=== PATIENT | female | born 1965 | race African-American/Black ===

== ENCOUNTER 2025-09-07 22:23 | Inpatient (IN) | payer MEDICAID ==
[~2025-09-07] VITALS: Ht 162.5 cm; Wt 110.8 kg
[2025-09-07] MEDS ORDERED: GABAPENTIN400 MG PO (22:33)
[2025-09-07] MEDS ORDERED: OXYCODONE5 M1 PO (22:35)
[2025-09-07] MEDS ORDERED: COZAAR25 M1 PO (22:36)
[2025-09-07] MEDS ORDERED: GABAPENTIN800 MG PO (22:36)
[2025-09-07] MEDS ORDERED: NORVASC5 MG PO (22:37)
[2025-09-07] MEDS ORDERED: TRAZODONE50 MG PO (22:38)
[2025-09-07] MEDS ORDERED: DULOXETINE HCL60 MG PO ×2 (22:39→22:48)
[2025-09-07] MEDS ORDERED: NEURONTIN800 MG PO (22:42)
[2025-09-07] MEDS ORDERED: Water, Sterile 10 ML VIAL IM PRN (22:55)
[2025-09-07] MEDS ORDERED: LORazepam 1 MG TAB PO PRN (22:55)
[2025-09-07] MEDS ORDERED: hydrOXYzine hydrochloride 50 MG/ML VIAL IM PRN (22:55)
[2025-09-07] MEDS ORDERED: ACETAMINOPHEN 325 MG TAB PO PRN (22:55)
[2025-09-07] MEDS ORDERED: MG-AL HYDROXIDE/SIMETICONE 30 ML UDC PO PRN (22:55)
[2025-09-07] MEDS ORDERED: Menthol/Zinc Oxide 4 GM THIN T PRN (23:05)
[2025-09-08 00:02] VITALS: BP 170/110
[2025-09-08] MEDS ORDERED: OXYCODONE HCL (IR) 5 MG TAB PO PRN (01:15)
[2025-09-08] MEDS ORDERED: GABAPENTIN 800 MG TAB PO SCH ×2 (02:25→09:00)
[2025-09-08 06:28] LABS: BASO # 0.0 10*3/uL (0.0-0.1); BASO % 0.5 % (0.0-1.0); EOS # 0.2 10*3/uL (0.0-0.4); EOS % 2.8 % (1.0-4.0); MEAN CELL VOLUME 96.0 fl (81.0-99.0); MEAN CORPUSCULAR HGB 30.0 pg (27.0-31.0); MEAN PLATELET VOLUME 10.0 fl (9.6-12.3); MONO # 0.5 10*3/uL (0.1-1.0); MONO % 8.0 % (3.0-9.0); NEUT # 3.0 10*3/uL (2.3-7.9); NEUT % 52.7 % (47.0-73.0); NUCLEATED RED BLOOD CELL 0.0 % (0.0-0.0); NUCLEATED RED BLOOD CELL 0.0 10*3/uL (0.0-0.0); PLATELET COUNT AUTOMATED 182 10*3/uL (130-400); RED CELL DISTRI WIDTH 14.0 % (0-14.5); VITAMIN D, 25-HYDROXY 41.7 ng/mL (30-100)
[2025-09-08 06:37] LABS: BUN 11 mg/dl (9-23); LDL CHOLESTEROL 64 mg/dL (9-159); SGPT/ALT 15 U/L (5-49)
[2025-09-08 06:40] LABS: VALPROIC ACID (DEPAKENE) < 3.0 ug/ml (50-100)
[2025-09-08] MEDS ORDERED: POTASSIUM CHLORIDE 20 MEQ TAB PO ONE (08:25)
[2025-09-08] MEDS ORDERED: CYANOCOBALAMIN 500 MCG TAB PO SCH (09:00)
[2025-09-08] MEDS ORDERED: GABAPENTIN 400 MG CAP PO SCH (09:00)
[2025-09-08] MEDS ORDERED: CYANOCOBALAMIN 1,000 MCG/ML VIAL IM SCH (10:00)
[2025-09-08 20:00] VITALS: BP 134/73
[2025-09-08] MEDS ORDERED: Amitriptyline Hydrochloride 25 MG TAB PO SCH (21:00)
[2025-09-08] MEDS ORDERED: GABAPENTIN 300 MG CAP PO SCH (21:00)
[2025-09-09 07:13] LABS: BUN 12 mg/dl (9-23)
[2025-09-09 11:28] VITALS: BP 141/82
[2025-09-09 20:00] VITALS: BP 158/99
[2025-09-09] MEDS ORDERED: IBUPROFEN 200 MG TAB PO PRN (20:50)
[2025-09-09] MEDS ORDERED: Amitriptyline Hydrochloride 25 MG TAB PO SCH (21:00)
[2025-09-10 08:00] VITALS: BP 154/100
[2025-09-10 20:00] VITALS: BP 154/62
[2025-09-11 08:19] VITALS: BP 136/74
[2025-09-11] MEDS ORDERED: OXYCODONE HCL (IR) 5 MG TAB PO PRN (13:47)
[2025-09-11 20:00] VITALS: BP 121/64
[2025-09-12] MEDS ORDERED: AMITRIPTYLINE25 MG PO (08:42)
[2025-09-12] MEDS ORDERED: B121000 MCG/1 IM (08:42)
[2025-09-12 09:25] VITALS: BP 136/73
[2025-09-12] MEDS ORDERED: OXYCODONE HCL5 MG PO (09:47)
[2025-09-12] MEDS ORDERED: NEURONTIN300 MG PO (09:48)
[2025-09-12 15:39] LABS: BILIRUBIN Negative (Negative); BLOOD Negative (Negative); CLARITY Clear (Clear); COLOR Yellow (Yellow); KETONE Negative (Negative); LEUKO ESTERASE Negative (Negative); NITRITE Negative (Negative); PH 5.5 (4.5-8.0); SPECIFIC GRAVITY 1.020 (1.001-1.030); UROBILINOGEN 0.2 E.U./dl (0.0-1.0)
[2025-09-12 15:58] LABS: BACTERIA 2+; CALCIUM OXALATE CRYSTALS 1+; EPITHELIAL CELLS 0-2
[2025-09-12 20:00] VITALS: BP 152/89
[2025-09-13 07:53] VITALS: BP 126/79
[2025-09-13] MEDS ORDERED: Amitriptyline Hydrochloride 25 MG TAB PO ONE (11:20)
[2025-09-14] MEDS ORDERED: Amitriptyline Hydrochloride 25 MG TAB PO SCH (09:00)
== END 2025-09-13 13:31 | disposition home or self-care (01) | DRG 751 ==
LOC: 3N 22:23
PROVIDERS: ADMIT Psychiatry & Neurology Psychiatry; ATTEND Psychiatry & Neurology Psychiatry
PROC: GZHZZZZ Group Psychotherapy (ICD-10-PCS; principal; 2025-09-08)
PROC: GZ56ZZZ Individual Psychotherapy, Supportive (ICD-10-PCS; 2025-09-08)
DX: F33.2 Major depressive disorder, recurrent severe without psychotic features (principal); I10 Essential (primary) hypertension; E78.5 Hyperlipidemia, unspecified; G62.9 Polyneuropathy, unspecified; M54.9 Dorsalgia, unspecified; E87.6 Hypokalemia; R73.9 Hyperglycemia, unspecified; T39.1X2A Poisoning by 4-Aminophenol derivatives, intentional self-harm, initial encounter; E05.90 Thyrotoxicosis, unspecified without thyrotoxic crisis or storm; M25.562 Pain in left knee; M25.561 Pain in right knee; E66.3 Overweight; F34.1 Dysthymic disorder; F43.21 Adjustment disorder with depressed mood; G89.29 Other chronic pain; Z96.653 Presence of artificial knee joint, bilateral; Z98.891 History of uterine scar from previous surgery; Z87.891 Personal history of nicotine dependence; Z82.49 Family history of ischemic heart disease and other diseases of the circulatory system; Z82.3 Family history of stroke; Z80.41 Family history of malignant neoplasm of ovary; Z88.0 Allergy status to penicillin; Z79.899 Other long term (current) drug therapy; Z79.01 Long term (current) use of anticoagulants; Z79.2 Long term (current) use of antibiotics; Z68.41 Body mass index [BMI] 40.0-44.9, adult; Y92.89 Other specified places as the place of occurrence of the external cause